=== PATIENT | female | born 1950 | race Two or more races ===

== ENCOUNTER 2020-05-10 12:52 | Outpatient (CLI) | payer BC ==
[2020-05-10] MEDS ORDERED: GADOTERIDOL 279.3 MG/ML VIAL IV ONE (15:37)
== END 2020-05-10 23:59 | disposition home or self-care (01) ==
LOC: RAD 12:52
DX: G03.9 Meningitis, unspecified (principal); R42 Dizziness and giddiness
CPT/HCPCS: 70553; A9579

== ENCOUNTER 2021-04-25 14:17 | Outpatient (CLI) | payer BC | END 2021-04-25 23:59 | disposition home or self-care (01) | LOC: MRI 14:17 | PROVIDERS: ATTEND Specialist | DX: M19.011 Primary osteoarthritis, right shoulder (principal); M75.121 Complete rotator cuff tear or rupture of right shoulder, not specified as traumatic; M25.411 Effusion, right shoulder; M25.711 Osteophyte, right shoulder; M75.41 Impingement syndrome of right shoulder; M47.813 Spondylosis without myelopathy or radiculopathy, cervicothoracic region; M48.03 Spinal stenosis, cervicothoracic region; M25.78 Osteophyte, vertebrae | CPT/HCPCS: 72141-TC; 73221-TC ==

== ENCOUNTER 2022-07-21 10:17 | Outpatient (CLI) | payer BC ==
[2022-07-21] MEDS ORDERED: GADOTERATE MEGLUMINE 10 MMOL/20 ML VIAL IV ONE (10:18)
== END 2022-07-21 23:59 | disposition home or self-care (01) ==
LOC: MRI 10:17
PROVIDERS: ATTEND Internal Medicine
DX: D32.0 Benign neoplasm of cerebral meninges (principal); G93.89 Other specified disorders of brain; M54.50 Low back pain, unspecified
CPT/HCPCS: 70553; A9575